=== PATIENT | female | born 1975 | race Two or more races ===

== ENCOUNTER 2018-01-29 11:31 | Emergency (ER) | payer BC ==
[2018-01-29 11:47] LABS: URINE HCG POC HCG NEGATIVE (Negative)
[2018-01-29 12:06] LABS: ADD MAN DIFF? NO
[2018-01-29 12:09] LABS: BASO # 0.1 x10^3/uL (0.0-0.2); BASO % 1 % (0-3); EOS # 0.1 x10^3/uL (0.0-0.7); EOS % 1 % (0-3); HEMATOCRIT 39.4 % (36.0-47.0); HEMOGLOBIN 13.7 g/dL (12.0-15.5); LYMPH # 2.8 x10^3/uL (1.0-4.8); LYMPH % 23 % (24-48); MEAN CORPUSCULAR HEMOGLOBIN 30 pg (25-35); MEAN CORPUSCULAR HGB CONC 35 g/dL (31-37); MEAN CORPUSCULAR VOLUME 87 fL (79-100); MONO # 0.7 x10^3/uL (0.0-1.1); MONO % 5 % (0-9); NEUT # 8.7 x10^3uL (1.8-7.7); NEUT % 70 % (31-73); PLATELET COUNT 265 x10^3/uL (140-400); RED BLOOD COUNT 4.55 x10^6/uL (3.50-5.40); WHITE BLOOD COUNT 12.4 x10^3/uL (4.0-11.0)
[2018-01-29 12:21] LABS: ANION GAP 6 (6-14); BLOOD UREA NITROGEN 13 mg/dL (7-20); BUN/CREATININE RATIO 16 (6-20); CALCIUM 9.1 mg/dL (8.5-10.1); CARBON DIOXIDE 30 mmol/L (21-32); CHLORIDE 101 mmol/L (98-107); CREATININE 0.8 mg/dL (0.6-1.0); GFR 78.7; GLUCOSE 110 mg/dL (70-99); POTASSIUM 3.3 mmol/L (3.5-5.1); SODIUM 137 mmol/L (136-145)
[2018-01-29 12:27] LABS: TROPONINI < 0.017 ng/mL (0.000-0.055)
[2018-01-29 12:27] LABS: ALBUMIN 3.6 g/dL (3.4-5.0); ALBUMIN/GLOBULIN RATIO 0.9 (1.0-1.7); ALK PHOS 105 U/L (46-116); ALT (SGPT) 25 U/L (14-59); AST (SGOT) 21 U/L (15-37); MAGNESIUM 1.7 mg/dL (1.8-2.4); TOTAL BILIRUBIN 0.6 mg/dL (0.2-1.0); TOTAL PROTEIN 7.4 g/dL (6.4-8.2)
[2018-01-29] MEDS: ASPIRIN 325 MG TABLET PO (12:34)
[2018-01-29] MEDS: POTASSIUM CHLORIDE 20 MEQ TABLET.ER. PO (13:05)
[2018-01-29] MEDS: MAGNESIUM SULFATE 1GM 100 ML IV (13:05)
== END 2018-01-29 14:25 | disposition home or self-care (01) ==
LOC: ER 11:31 → 5 SOUTH 13:53
DX: R51 Headache (principal); R07.89 Other chest pain; I10 Essential (primary) hypertension; F13.10 Sedative, hypnotic or anxiolytic abuse, uncomplicated
CPT/HCPCS: 36415; 71045; 80053; 81025; 83735; 84484; 85025; 93005; 96365; 99285-25; J3475

== ENCOUNTER 2019-04-30 17:00 | Emergency (ER) | payer BC ==
[~2019-04-30] VITALS: Ht 154.9 cm; Wt 121.1 kg
--- NOTE | 2019-04-30 17:59 | PHYS DOC ---
Past Medical History Past Medical History: Hypertension, Hyperthyroid Past Surgical History: Other Additional Past Surgical Histo: BURNING OR UTERUS FOR HPV Alcohol Use: None Drug Use: Benzodiazepine Adult General Chief Complaint Chief Complaint: Insomnia HPI HPI Patient is a 43 year old female with history of hypertension, hypothyroidism, who presents to the ED today complaining of stress and insomnia. Patient states since February she's had increased stress because her daughter gave to a premature baby and she has been helping the daughter take care of the baby. She states she's not been sleeping well since February. Patient denies any suicidal homicidal ideations. She states she's been taking txhz-[id number] sleeping tea with some relief for her insomnia. She was asking if we can put her on any sleeping pills and medicine for stress. Review of Systems Review of Systems Constitutional: Denies fever or chills [] Eyes: Denies change in visual acuity, redness, or eye pain [] HENT: Denies nasal congestion or sore throat [] Respiratory: Denies cough or shortness of breath [] Cardiovascular: No additional information not addressed in HPI [] GI: Denies abdominal pain, nausea, vomiting, bloody stools or diarrhea [] : Denies dysuria or hematuria [] Musculoskeletal: Denies back pain or joint pain [] Integument: Denies rash or skin lesions [] Neurologic: Denies headache, focal weakness or sensory changes [] Psych: Reports insomnia and stress All other systems were reviewed and found to be within normal limits, except as documented in this note. Current Medications Current Medications Current Medications Medications (Trade) Dose Ordered Sig/Yanick Start Time Stop Time Status Last Admin Dose Admin Alprazolam (Xanax) 0.5 mg 1X ONCE 04/30/19 18:00 04/30/19 18:01 Clonidine HCl (Catapres) 0.1 mg 1X ONCE 04/30/19 18:00 04/30/19 18:01 Allergies Allergies Allergies Coded Allergies Type Severity Reaction Last Updated Verified No Known Drug Allergies 08/26/15 No Physical Exam Physical Exam Constitutional: Well developed, well nourished, no acute distress, non-toxic appearance. [] HENT: Normocephalic, atraumatic, bilateral external ears normal, oropharynx moist, no oral exudates, nose normal. [] Eyes: PERRLA, EOMI, conjunctiva normal, no discharge. [] Neck: Normal range of motion, no tenderness, supple, no stridor. [] Cardiovascular:Heart rate regular rhythm, no murmur [] Lungs & Thorax: Bilateral breath sounds clear to auscultation [] Abdomen: Bowel sounds normal, soft, no tenderness, no masses, no pulsatile masses. [] Skin: Warm, dry, no erythema, no rash. [] Back: No tenderness, no CVA tenderness. [] Extremities: No tenderness, no cyanosis, no clubbing, ROM intact, no edema. [] Neurologic: Alert and oriented X 3, normal motor function, normal sensory function, no focal deficits noted. [] Psychologic: Appears tired. EKG EKG [] Radiology/Procedures Radiology/Procedures [] Course & Med Decision Making Course & Med Decision Making Pertinent Labs and Imaging studies reviewed. (See chart for details) This is a 43-year-old female patient who presents to the ED today complaining of insomnia and stress due to her daughter giving to a premature baby and having to help with the daughter. She has no suicidal or homicidal ideations. She is requesting to be put on sleeping pills and medications for stress. I spoke to patient at length. We discussed about usxp-zht-anbrfzi remedies for sleeping including melatonin/Benadryl. We also discussed stress management techniques. She has a primary care doctor, I requested she follows up in the next 1 week. I also recommended [facility]. Dragon Disclaimer Dragon Disclaimer This electronic medical record was generated, in whole or in part, using a voice recognition dictation system. Departure Departure Impression: Primary Impression: Insomnia Additional Impression: Stress Disposition: 01 HOME, SELF-CARE Condition: STABLE Referrals: REY CHENEY MD (PCP) Follow-up with your doctor in the course of this week as well as [facility] Patient Instructions: Insomnia-Brief, Stress Additional Instructions: You were evaluated in the emergency room for insomnia and stress. Please follow- up with your primary care doctor in the course of this week or next week. Consider using pehn-ayb-sgenuzs remedies that we discussed that help with this patient sleep including Benadryl Problem Qualifiers Primary Impression: Insomnia Insomnia type: other insomnia Qualified Codes: G47.09 - Other insomnia JUANMICAH GONZALEZ SHELL MACHINE OPERATOR Apr 30, 2019 17:59
[2019-04-30 18:00] VITALS: BP 194/93
[2019-04-30] MEDS ORDERED: cloNIDine HCL 0.1 MG TABLET PO ONE (18:00)
[2019-04-30] MEDS ORDERED: ALPRAZolam 0.5 MG TABLET PO ONE (18:00)
== END 2019-04-30 18:21 | disposition home or self-care (01) ==
LOC: ER 17:00
DX: F51.02 Adjustment insomnia (principal); I10 Essential (primary) hypertension; E05.90 Thyrotoxicosis, unspecified without thyrotoxic crisis or storm
CPT/HCPCS: 99283

== ENCOUNTER 2022-01-09 17:00 | Emergency (ER) | payer BC, OTHER ==
[~2022-01-09] VITALS: Ht 154.9 cm; Wt 147.8 kg
[2022-01-09 17:57] LABS: BASO % 1 % (0-3); EOS # 0.1 x10^3/uL (0.0-0.7); EOS % 1 % (0-3); HEMATOCRIT 40.7 % (36.0-47.0); HEMOGLOBIN 13.4 g/dL (12.0-15.5); LYMPH # 1.4 x10^3/uL (1.0-4.8); LYMPH % 14 % (24-48); MEAN CORPUSCULAR HEMOGLOBIN 28 pg (25-35); MEAN CORPUSCULAR HGB CONC 33 g/dL (31-37); MEAN CORPUSCULAR VOLUME 86 fL (79-100); MONO # 0.2 x10^3/uL (0.0-1.1); MONO % 2 % (0-9); NEUT # 8.1 x10^3/uL (1.8-7.7); NEUT % 83 % (31-73); PLATELET COUNT 303 x10^3/uL (140-400); RED BLOOD COUNT 4.73 x10^6/uL (3.50-5.40); RED CELL DISTRIBUTION WIDTH 15.3 % (11.5-14.5); WHITE BLOOD COUNT 9.8 x10^3/uL (4.0-11.0)
[2022-01-09] MEDS ORDERED: ACETAMINOPHEN 500 MG TABLET PO ONE (18:00)
[2022-01-09] MEDS ORDERED: IV NORMAL SALINE 1000ML BAG 1,000 ML IV ONE (18:00)
[2022-01-09 18:11] LABS: CALCIUM 9.3 mg/dL (8.5-10.1); CREATININE 0.9 mg/dL (0.6-1.0); GFR 67.4
[2022-01-09 18:17] LABS: ALBUMIN 3.8 g/dL (3.4-5.0); ALBUMIN/GLOBULIN RATIO 0.9 (1.0-1.7); TOTAL BILIRUBIN 0.7 mg/dL (0.2-1.0); TOTAL PROTEIN 8.2 g/dL (6.4-8.2)
--- NOTE | 2022-01-09 18:27 | PHYS DOC ---
Past Medical History Past Medical History: Hypertension, Hyperthyroid Past Surgical History: Other Additional Past Surgical Histo: BURNING OR UTERUS FOR HPV Smoking Status: Never Smoker Alcohol Use: None Drug Use: Benzodiazepine General Adult EDM: Chief Complaint: HEADACHE HPI: HPI: Is a 46-year-old female that presents today with headache and shaking. Patient states she states that this afternoon she started developing a headache, and shaking all over, she said she took some Tylenol this morning for headache and is progressively gotten worse. Patient also states with the headache she has some blurred vision double vision, patient did not complain of shortness of br eath or chest pain with me at the time of the HPI, patient denies cough, sore throat or nasal congestion. Review of Systems: Review of Systems: Constitutional: chills. [] Eyes: Denies change in visual acuity. [] HENT: Denies nasal congestion or sore throat. [] Respiratory: Denies cough or shortness of breath. [] Cardiovascular: Denies chest pain or edema. [] GI: Denies abdominal pain, nausea, vomiting, bloody stools or diarrhea. [] : dysuria and urinary frequency. [] Musculoskeletal: Body aches denies back pain or joint pain. [] Integument: Denies rash. [] Neurologic: headache and dizziness, denies focal weakness or sensory changes. [] Endocrine: Denies polyuria or polydipsia. [] Lymphatic: Denies swollen glands. [] Psychiatric: Denies depression or anxiety. [] Heart Score: C/O Chest Pain: No Risk Factors: Risk Factors: DM, Current or recent (<one month) smoker, HTN, HLP, family history of CAD, obesity. Risk Scores: Score 0 - 3: 2.5% MACE over next 6 weeks - Discharge Home Score 4 - 6: 20.3% MACE over next 6 weeks - Admit for Clinical Observation Score 7 - 10: 72.7% MACE over next 6 weeks - Early Invasive Strategies Current Medications: Current Medications Medications (Trade) Dose Ordered Sig/Yanick Start Time Stop Time Status Last Admin Dose Admin Acetaminophen (Tylenol) 1,000 mg 1X ONCE 01/09/22 18:00 01/09/22 18:01 DC 01/09/22 17:59 1,000 MG Sodium Chloride 1,000 ml @ 999 mls/hr 1X ONCE 01/09/22 18:00 01/09/22 19:00 01/09/22 17:53 999 MLS/HR Allergies: Allergies: Allergies Coded Allergies Type Severity Reaction Last Updated Verified No Known Drug Allergies 08/26/15 No Physical Exam: PE: Constitutional: Well developed, well nourished, no acute distress, non-toxic appearance. [] HENT: Normocephalic, atraumatic, bilateral external ears normal, oropharynx moist, no oral exudates, nose normal. [] Eyes: PERRLA, EOMI, conjunctiva normal, no discharge. [] Neck: Normal range of motion, no tenderness, supple, no stridor. [] Cardiovascular:Heart rate regular rhythm, no murmur [] Lungs & Thorax: Bilateral breath sounds clear to auscultation [] Abdomen: Bowel sounds normal, soft, no tenderness, no masses, no pulsatile masses. [] Skin: Warm, hot, no erythema, no rash. [] Back: No tenderness, no CVA tenderness. [] Extremities: No tenderness, no cyanosis, no clubbing, ROM intact, no edema. [] Neurologic: Alert and oriented X 3, normal motor function, normal sensory function, no focal deficits noted. [] Psychologic: Affect normal, judgement normal, mood normal. [] Current Patient Data: Labs: Laboratory Tests Test 01/09/22 17:30 White Blood Count 9.8 x10^3/uL (4.0-11.0) Red Blood Count 4.73 x10^6/uL (3.50-5.40) Hemoglobin 13.4 g/dL (12.0-15.5) Hematocrit 40.7 % (36.0-47.0) Mean Corpuscular Volume 86 fL (79-100) Mean Corpuscular Hemoglobin 28 pg (25-35) Mean Corpuscular Hemoglobin Concent 33 g/dL (31-37) Red Cell Distribution Width 15.3 % (11.5-14.5) H Platelet Count 303 x10^3/uL (140-400) Neutrophils (%) (Auto) 83 % (31-73) H Lymphocytes (%) (Auto) 14 % (24-48) L Monocytes (%) (Auto) 2 % (0-9) Eosinophils (%) (Auto) 1 % (0-3) Basophils (%) (Auto) 1 % (0-3) Neutrophils # (Auto) 8.1 x10^3/uL (1.8-7.7) H Lymphocytes # (Auto) 1.4 x10^3/uL (1.0-4.8) Monocytes # (Auto) 0.2 x10^3/uL (0.0-1.1) Eosinophils # (Auto) 0.1 x10^3/uL (0.0-0.7) Basophils # (Auto) 0.0 x10^3/uL (0.0-0.2) Sodium Level 136 mmol/L (136-145) Potassium Level 4.0 mmol/L (3.5-5.1) Chloride Level 99 mmol/L (98-107) Carbon Dioxide Level 29 mmol/L (21-32) Anion Gap 8 (6-14) Blood Urea Nitrogen 14 mg/dL (7-20) Creatinine 0.9 mg/dL (0.6-1.0) Estimated GFR (Cockcroft-Gault) 67.4 BUN/Creatinine Ratio 16 (6-20) Glucose Level 95 mg/dL (70-99) Calcium Level 9.3 mg/dL (8.5-10.1) Total Bilirubin Pending Aspartate Amino Transferase (AST) Pending Alanine Aminotransferase (ALT) Pending Alkaline Phosphatase Pending Total Protein Pending Albumin Pending Albumin/Globulin Ratio Pending Laboratory Tests 01/09/22 17:30 Laboratory Tests 01/09/22 17:30 Vital Signs: Vital Signs Date Time Temp Pulse Resp B/P (MAP) Pulse Ox O2 Delivery O2 Flow Rate FiO2 01/09/22 18:51 100.0 118 32 98 100.0 01/09/22 18:07 124 26 98 01/09/22 17:04 103.1 140 32 186/86 (119) 95 Room Air 103.1 Vital Signs Date Time Temp Pulse Resp B/P (MAP) Pulse Ox O2 Delivery O2 Flow Rate FiO2 01/09/22 18:07 124 26 98 01/09/22 17:04 103.1 186/86 (119) Room Air 103.1 EKG: EKG: EKG done at [address] Ortiz at 1750 shows sinus rhythm no ectopy at a rate of 127 with a WY interval of 178 ms with a QTC of 421 ms no STEMI [] Radiology/Procedures: Radiology/Procedures: REASON: shortness of breath PROCEDURE: CHEST AP ONLY XR CHEST 1V INDICATION: shortness of breath . COMPARISON STUDY: None. FINDINGS: Lungs: Normal lung volume. No pulmonary mass or consolidation. The tracheobronchial tree and hilar structures are normal. Pleura: No pleural effusion or pneumothorax. Heart and Mediastinum: Mild cardiomegaly. The great vessels of the thorax are normal. Bones and Soft Tissues: The bones and soft tissues are within normal limits. IMPRESSION: No acute cardiopulmonary process. Electronically signed by: Ab Rudd MD (01/09/2022 6:58 PM) [facility] REASON: headache and dizziness PROCEDURE: CT HEAD WO CONTRAST Exam: CT head INDICATION: Headache and dizziness TECHNIQUE: Sequential axial images through the head were obtained without the administration of IV contrast. Exposure: One or more of the following in the visualized dose reduction techniques were utilized for this examination: 1. Automated exposure control 2. Adjustment of the MA and/or KV according to patient size 3. Use of iterative of reconstructive technique Comparisons: None FINDINGS: No focal parenchymal lesion or hemorrhage is identified. There is no midline shift or sulcal effacement. No acute vascular territory infarction is identified. Santamaria-white distinction is preserved. The ventricular system is within normal limits without compression hydrocephalus. The basal cisterns are well maintained. The visualized portions of the paranasal sinuses and mastoid air cells are well- pneumatized. No acute fractures. IMPRESSION: No acute intracranial abnormality. Electronically signed by: Rebeca Browne MD (01/09/2022 7:13 PM) [facility] [] Course & Med Decision Making: Course & Med Decision Making Pertinent Labs and Imaging studies reviewed. (See chart for details) 2109 reviewed radiological laboratory results with patient did inform her that she does have pyelonephritis and that we had given her an IV antibiotic and will send her home with oral antibiotic to take. Patient was given return instructions to come back to the emergency department for increased pain, fever not relieved by Tylenol or ibuprofen, inability to keep any antibiotics down due to nausea and vomiting or any other concerns you may have. Patient does see [facility] I instructed her to call them tomorrow for further follow-up next week for repeat urine. Patient verbalized understanding this and agreeable with plan of care. Any Disclaimer: Any Disclaimer: This electronic medical record was generated, in whole or in part, using a voice recognition dictation system. Departure Departure Impression: Primary Impression: Pyelonephritis Disposition: HOME / SELF CARE / HOMELESS Condition: STABLE Referrals: NO PCP (PCP) Patient Instructions: Pyelonephritis, Adult Additional Instructions: Cefdinir take 1 tablet twice daily for 10 full days Increase by mouth fluid avoiding caffeine and alcohol which can irritate the kidneys and bladder Tylenol and/or ibuprofen as needed for fever and pain Return to the emergency department for increased pain, fever not controlled with Tylenol and/or ibuprofen, nausea vomiting that prevents you to take your antibiotics, or decreased urinary output Follow-up with your primary care physician at the [facility] tomorrow by phone for further management and evaluation next week. Scripts Cefdinir (CEFDINIR) 300 Mg Capsule 1 CAP PO BID, #20 CAP Prov: SHAMAR MEDEIROS ALTERATIONS EXPERT 01/09/22 SHAMAR MEDEIROS ALTERATIONS EXPERT Jan 09, 2022 18:26
[2022-01-09 19:01] LABS: BACTERIA,URINE MODERATE /HPF (0-FEW); WBC,URINE TNTC /HPF (0-4)
--- NOTE | 2022-01-09 19:01 | RAD ---
XR CHEST 1V INDICATION: shortness of breath . COMPARISON STUDY: None. FINDINGS: Lungs: Normal lung volume. No pulmonary mass or consolidation. The tracheobronchial tree and hilar st ructures are normal. Pleura: No pleural effusion or pneumothorax. Heart and Mediastinum: Mild cardiomegaly. The great vessels of the thorax are normal. Bones and Soft Tissues: The bones and soft tissues are within normal limits. IMPRESSION: No acute cardiopulmonary process. Electronically signed by: Ab Rudd MD (01/09/2022 6:58 PM) [facility]
[2022-01-09 19:04] LABS: INFLUENZA A PATIENT NEGATIVE (NEGATIVE); INFLUENZA B PATIENT NEGATIVE (NEGATIVE)
--- NOTE | 2022-01-09 19:16 | RAD ---
Exam: CT head INDICATION: Headache and dizziness TECHNIQUE: Sequential axial images through the head were obtained without the administration of IV co ntrast. Exposure: One or more of the following in the visualized dose reduction techniques were utilized for this examination: 1. Automated exposure control 2. Adjustment of the MA and/or KV according to patient size 3. Use of iterative of reconstructive technique Comparisons: None FINDINGS: No focal parenchymal lesion or hemorrhage is identified. There is no midline shift or sulcal effaceme nt. No acute vascular territory infarction is identified. Santamaria-white distinction is preserved. The ventricular system is within normal limits without compression hydrocephalus. The basal cisterns are well maintained. The visualized portions of the paranasal sinuses and mastoid air cells are well-pneumatized. No acute fractures. IMPRESSION: No acute intracranial abnormality. Electronically signed by: Rebeca Browne MD (01/09/2022 7:13 PM) MIC[facility]EL
[2022-01-09] MEDS ORDERED: cefTRIAXone IV Push 1 GM VIAL. IVP ONE (19:30)
--- NOTE | 2022-01-09 19:31 | EKG ---
[facility] [address] [place] [address] Test Date: 2022-01-09 Test Time: 17:45:35 Pat Name: ADELAIDA REDDY Department: Room: Gender: F Historic Preservationist: : 1975 Requested By: SHAMAR MEDEIROS Order Number: [id number] Reading MD: Measurements Intervals [place] Rate: 127 P: 156 MA: 178 QRS: 5 QRSD: 96 T: 43 QT: 286 QTc: 421 Interpretive Statements SUPRAVENTRICULAR RHYTHM T ABNORMALITY IN HIGH LATERAL LEADS ABNORMAL ECG RI6.02 No previous ECG available for comparison
[2022-01-09] MEDS ORDERED: IOHEXOL 300 MG/ML 100ML VIAL. IV ONE (20:00)
[2022-01-09] MEDS ORDERED: CONTRAST GIVEN. MC PRN (20:15)
[2022-01-09 20:25] LABS: U PREG PATIENT NEGATIVE (NEG)
--- NOTE | 2022-01-09 21:07 | RAD ---
EXAM: CT Abdomen and Pelvis with IV contrast CLINICAL HISTORY: r/o pyelonephritis COMPARISON: none TECHNIQUE: Helical CT of the abdomen and pelvis was performed following the administration of intrave nous contrast. Axial, coronal and sagittal reformatted images were generated. PQRS compliance statement - One or more of the following individualized dose reduction techniques wer e utilized for this study: 1. Automated exposure control 2. Adjustment of the mA and/or kV according to patient size 3. Use of iterative reconstruction technique FINDINGS: Lower Chest: Lung bases are clear. Abdomen and Pelvis: Hepatic hypoattenuation, fatty liver. Hepatomegaly. Spleen, adrenal glands and pancreas are unremarka ble. Symmetric nephrograms. No focal renal lesion. No hydronephrosis. No hydroureter. There is mild i nfiltration about the right ureter and right kidney. Mild edematous appearance of the right kidney. B ladder is unremarkable. Appendix is normal. Moderate to large volume colonic stool content is seen. No small or large bowel d ilatation. Trace fat-containing periumbilical hernia is seen. Low-attenuation within the cervix/lower uterine s egment, likely nabothian cysts. Aorta is normal in caliber. No abdominal or pelvic lymphadenopathy. N o abdominal or pelvic ascites. No aggressive osseous lesion is seen. Degenerative changes of the spine are seen IMPRESSION: 1. Infiltration about the right kidney with mild enlargement/edematous appearance of the right kidne y may be seen with pyelonephritis and can be correlated with urinalysis and lab values. 2. Hepatomegaly. Hepatic hypoattenuation, fatty liver. Electronically signed by: Kevin Choudhary MD (01/09/2022 9:05 PM) [facility]
[2022-01-09] MEDS ORDERED: CEFD300C PO (21:18)
[2022-01-09 21:32] VITALS: BP 147/67
--- NOTE | 2022-01-10 11:07 | VNOTE ---
CALL BACK NOTE CALL BACK Microbiology 01/09/22 Blood Culture - Final, Complete 01/10/22 1103 Blood cultures positive in 01/09 bottles for gram negative rods. Patient chart reviewed. She was diagnosed with pyelonephritis and dc to home with rx for cefdinir. On presentation, patient was febrile, tachycardic, tachypnic. On updated vitals, tachycardic and tachypnic, temp 100.[address] F[address]. Baker, attending in ED, who concurs patient should be contacted to consider return for IV antibiotic administration. Attempted to call patient phone number on file as well as 's number. Both did not ring upon dialing. Notified nursing pipe manufacture supervisor that attempt to contact was made. DONTRELL YEH Jan 10, 2022 11:07
[2022-01-10] MEDS ORDERED: CLIN30GE3 TP (21:24)
[2022-01-10] MEDS ORDERED: HYDR25TA10 PO (21:24)
[2022-01-10] MEDS ORDERED: AMLO-186 PO (21:24)
[2022-01-10] MEDS ORDERED: MULT-245 PO (21:25)
== END 2022-01-09 21:49 | disposition home or self-care (01) ==
LOC: ER 17:00
DX: N12 Tubulo-interstitial nephritis, not specified as acute or chronic (principal); Z20.822 Contact with and (suspected) exposure to COVID-19; R51.9 Headache, unspecified; R06.02 Shortness of breath; I10 Essential (primary) hypertension
CPT/HCPCS: 36415; 70450; 71045; 74177; 80053; 81001; 81025; 85025; 87015; 87040; 87077; 87086; 87186; 87428; 93005; 96361; 96374; 99285; J0696; J7030; Q9967

== ENCOUNTER 2022-01-10 15:32 | Inpatient (IN) | payer OTHER ==
[~2022-01-10] VITALS: Ht 154.9 cm; Wt 147.4 kg
[~2022-01-10 15:32] MED LIST: CEFD300C PO
[2022-01-10] MEDS ORDERED: ACETAMINOPHEN 500 MG TABLET PO ONE (16:45)
[2022-01-10] MEDS ORDERED: VANCOMYCIN PER PHARMACY MC ONE (16:45)
[2022-01-10] MEDS ORDERED: ONDANSETRON PF 4 MG/2 ML VIAL. IVP ONE (16:45)
[2022-01-10] MEDS ORDERED: MORPHINE SULFATE 4 MG/ML INJ. IV/SQ PRN (16:45)
[2022-01-10] MEDS ORDERED: PIPERACILLIN/TAZOBACTAM 4.5 GM in IV DEXTROSE 5% 100ML 100 ML IV ONE (17:00)
[2022-01-10] MEDS: IV NORMAL SALINE 1000ML BAG 1,000 ML IV SCH ×2 (17:09→18:53)
[2022-01-10 17:24] LABS: CREATININE 0.9 mg/dL (0.6-1.0); GFR 67.4; POTASSIUM 3.6 mmol/L (3.5-5.1)
[2022-01-10 17:30] LABS: ALBUMIN 3.3 g/dL (3.4-5.0); ALBUMIN/GLOBULIN RATIO 0.8 (1.0-1.7); TOTAL BILIRUBIN 0.5 mg/dL (0.2-1.0); TOTAL PROTEIN 7.7 g/dL (6.4-8.2)
[2022-01-10] MEDS ORDERED: VANCOMYCIN 2 GM in IV NORMAL SALINE 500ML BAG 500 ML IV ONE (17:30)
[2022-01-10 17:38] LABS: BACTERIA,URINE FEW /HPF (0-FEW); RBC,URINE 20-40 /HPF (0-2)
--- NOTE | 2022-01-10 19:12 | PHYS DOC ---
Past Medical History Past Medical History: Hypertension, Hyperthyroid Past Surgical History: Other Additional Past Surgical Histo: BURNING OR UTERUS FOR HPV Smoking Status: Never Smoker Alcohol Use: None Drug Use: Benzodiazepine General Adult EDM: Chief Complaint: OTHER COMPLAINTS HPI: HPI: Patient is a 46 year old female who presents to the ED today to be evaluated for pyelonephritis, she was diagnosed yesterday and sent home on oral antibiotics. She was called by one of the midlevel's to be admitted for sepsis/pyelonephritis. Patient states she continues to have shivering, fever and nausea. Review of Systems: Review of Systems: Constitutional: reports shivering, shaking Eyes: Denies change in visual acuity. [] HENT: Denies nasal congestion or sore throat. [] Respiratory: Denies cough or shortness of breath. [] Cardiovascular: Denies chest pain or edema. [] GI: Reports nausea. Denies abdominal pain, vomiting, bloody stools or diarrhea. [] : Diagnosed with pyelonephritis yesterday Musculoskeletal: Denies back pain or joint pain. [] Integument: Denies rash. [] Neurologic: Denies headache, focal weakness or sensory changes. [] Psychiatric: Denies depression or anxiety. [] Heart Score: C/O Chest Pain: N/A Risk Factors: Risk Factors: DM, Current or recent (<one month) smoker, HTN, HLP, family history of CAD, obesity. Risk Scores: Score 0 - 3: 2.5% MACE over next 6 weeks - Discharge Home Score 4 - 6: 20.3% MACE over next 6 weeks - Admit for Clinical Observation Score 7 - 10: 72.7% MACE over next 6 weeks - Early Invasive Strategies Current Medications: Current Medications Medications (Trade) Dose Ordered Sig/[facility] Start Time Stop Time Status Last Admin Dose Admin Acetaminophen (Tylenol) 1,000 mg 1X ONCE 01/10/22 16:45 01/10/22 16:46 DC 01/10/22 17:10 1,000 MG Morphine Sulfate (Morphine Sulfate) 4 mg PRN Q15MIN PRN 01/10/22 16:45 01/11/22 16:44 Ondansetron HCl (Zofran) 4 mg 1X ONCE 01/10/22 16:45 01/10/22 16:46 DC 01/10/22 17:11 4 MG Piperacillin Sod/ Tazobactam Sod (Zosyn Per Pharmacy) 1 each PRN DAILY PRN 01/10/22 19:15 UNV Piperacillin Sod/ Tazobactam Sod 4.5 gm/Dextrose 100 ml @ 200 mls/hr 1X ONCE 01/10/22 17:00 01/10/22 17:29 DC 01/10/22 17:14 200 MLS/HR Sodium Chloride 1,000 ml @ 1,440 mls/hr Q42M 01/10/22 16:45 01/10/22 17:45 DC 01/10/22 18:53 1,440 MLS/HR Vancomycin HCl (Vanco Per Pharmacy) 1 each 1X ONCE 01/10/22 16:45 01/10/22 16:46 UNV Vancomycin HCl 2 gm/Sodium Chloride 500 ml @ 250 mls/hr 1X ONCE 01/10/22 17:30 01/10/22 19:29 01/10/22 18:52 250 MLS/HR Allergies: Allergies: Allergies Coded Allergies Type Severity Reaction Last Updated Verified No Known Drug Allergies 01/10/22 No Physical Exam: PE: Constitutional: Well developed, well nourished, no acute distress, non-toxic appearance. [] HENT: Normocephalic, atraumatic, bilateral external ears normal, oropharynx moist, no oral exudates, nose normal. [] Eyes: PERRLA, EOMI, conjunctiva normal, no discharge. [] Neck: Normal range of motion, no tenderness, supple, no stridor. [] Cardiovascular:Heart rate regular rhythm, no murmur [] Lungs & Thorax: Bilateral breath sounds clear to auscultation [] Abdomen: Bowel sounds normal, soft, no tenderness, no masses, no pulsatile masses. [] Skin: Warm, dry, no erythema, no rash. [] Back: No tenderness, no CVA tenderness. [] Extremities: No tenderness, no cyanosis, no clubbing, ROM intact, no edema. [] Neurologic: Alert and oriented X 3, normal motor function, normal sensory function, no focal deficits noted. [] Psychologic: Affect normal, judgement normal, mood normal. [] Current Patient Data: Labs: Laboratory Tests Test 01/10/22 16:55 01/10/22 17:05 Urine Collection Type Unknown Urine Color (Auto) Light yellow Urine Turbidity Hazy Urine pH (Auto) 7.5 (<5.0-8.0) Urine Specific [place] 1.015 (1.000-1.030) Urine Protein (Auto) Negative mg/dL (Negative) Urine Glucose (Auto)(UA) Negative mg/dL (Negative) Urine Ketones (Auto) Negative mg/dL (Negative) Urine Blood (Auto) Large (Negative) Urine Nitrite Negative (Negative) Urine Bilirubin (Auto) Negative (Negative) Urine Urobilinogen (Auto) Normal mg/dL (Normal) Urine Leukocyte Esterase (Auto) Moderate (Negative) Urine RBC 20-40 /HPF (0-2) Urine WBC 11-20 /HPF (0-4) Urine Squamous Epithelial Cells Mod /LPF Urine Bacteria Few /HPF (0-FEW) Urine Mucus Slight /LPF Sodium Level 139 mmol/L (136-145) Potassium Level 3.6 mmol/L (3.5-5.1) Chloride Level 99 mmol/L (98-107) Carbon Dioxide Level 31 mmol/L (21-32) Anion Gap 9 (6-14) Blood Urea Nitrogen 14 mg/dL (7-20) Creatinine 0.9 mg/dL (0.6-1.0) Estimated GFR (Cockcroft-Gault) 67.4 BUN/Creatinine Ratio 16 (6-20) Glucose Level 109 mg/dL (70-99) H Lactic Acid Level 1.2 mmol/L (0.4-2.0) Calcium Level 9.0 mg/dL (8.5-10.1) Total Bilirubin 0.5 mg/dL (0.2-1.0) Aspartate Amino Transferase (AST) 21 U/L (15-37) Alanine Aminotransferase (ALT) 26 U/L (14-59) Alkaline Phosphatase 81 U/L (46-116) Total Protein 7.7 g/dL (6.4-8.2) Albumin 3.3 g/dL (3.4-5.0) L Albumin/Globulin Ratio 0.8 (1.0-1.7) L Procalcitonin 8.21 ng/mL (0.00-0.10) H Laboratory Tests 01/10/22 17:05 Vital Signs: Vital Signs Date Time Temp Pulse Resp B/P (MAP) Pulse Ox O2 Delivery O2 Flow Rate FiO2 01/10/22 16:10 98.7 104 14 153/74 (100) 97 98.7 EKG: EKG: [] Radiology/Procedures: Radiology/Procedures: [] Course & Med Decision Making: Course & Med Decision Making Pertinent Labs and Imaging studies reviewed. (See chart for details) This a 46-year-old female patient presented to the ED today to be evaluated for pyelonephritis/sepsis she was diagnosed yesterday. She was called by one of the midlevel's and asked to return to the ED for admission. Patient states she is still shivering, has nausea. Vitals on arrival to the ED temperature 98.7, heart rate 104, respiration 14 on room air, blood pressure 153/74. CBC still pending, sed rate and CRP pending, lactic 1.2, procalcitonin 8.12. UA continues to show infection. Chemistry no acute findings. Given Zosyn and vancomycin, IV fluids continued Spoke with Dr. Bradford who accepted patient for admission Dragon Disclaimer: Any Disclaimer: This electronic medical record was generated, in whole or in part, using a voice recognition dictation system. Date and Time of Reassessment Date: Jan 10, 2022 Time: 17:30 Fluid Challenge Is the fluid challenge complet: No IBW Target Volume Used: No BMI > 30: No Vital Signs Vital Signs: Vital Signs Date Time Temp Pulse Resp B/P (MAP) Pulse Ox O2 Delivery O2 Flow Rate FiO2 01/10/22 16:10 98.7 104 14 153/74 (100) 97 98.7 Temperature Source: Oral Respirations Respiratory Effort: Normal Respiratory Pattern: Normal Cardiovascular Pulse Rhythm: Regular Heart: Nml rate, reg. rhythm Lung Sounds Breath Sounds: Clear Capillary Refil Capillary Refill: Rt Hand > 3 seconds Peripheral Pulse Pulse Location: Monitor Pulse Strength: Normal (2+) Pulse Assessment Method: NIBP Integumentary Skin: Warm Skin Moisture: Moist Skin Turgor: Normal Skin Color: warm Fingernail Color: WNL Departure Departure Impression: Primary Impression: Acute pyelonephritis Additional Impression: Sepsis Qualified Codes: A41.9 - Sepsis, unspecified organism Disposition: ADMITTED INPATIENT Condition: STABLE Referrals: NO PCP (PCP) MICAH BOLANOS APRN Jan 10, 2022 19:12
[2022-01-10] MEDS ORDERED: ONDANSETRON PF 4 MG/2 ML VIAL. IVP PRN (19:15)
[2022-01-10] MEDS ORDERED: ELECTROLYTE (NON-ICU) PROTOCOL. MC PRN (19:15)
[2022-01-10] MEDS ORDERED: MORPHINE SULFATE 2 MG/ML INJ. IV PRN ×2 (19:15)
[2022-01-10] MEDS ORDERED: oxyCODONE/APAP 5/325 1 TAB TABLET PO PRN ×2 (19:15)
[2022-01-10] MEDS ORDERED: PIP/TAZO PER PHARMACY MC PRN (19:15)
[2022-01-10] MEDS ORDERED: CALCIUM CARBONATE 500 MG TAB.CHEW PO PRN (19:15)
[2022-01-10] MEDS ORDERED: ZOLPIDEM 5 MG TABLET. PO PRN (19:15)
--- NOTE | 2022-01-10 19:59 | RAD ---
XR CHEST 1V INDICATION: elevated procal, eval for infectious etiology COMPARISON STUDY: None. FINDINGS: Lungs: Normal lung volume. No pulmonary mass or consolidation. The tracheobronchial tree and hilar st ructures are normal. Pleura: No pleural effusion or pneumothorax. Heart and Mediastinum: The cardiomediastinal silhouette is normal. The great vessels of the thorax ar e normal. IMPRESSION: No acute cardiopulmonary process. Electronically signed by: Ab Rudd MD (01/10/2022 7:57 PM) [facility]
--- NOTE | 2022-01-10 20:42 | NUR ---
Pharmacy Vancomycin Dosing Note S:Consulted to monitor and dose vancomycin started 01/10/22. O:ADELAIDA REDDY is a 46 year old F with Pyelonephritis . Height: 5 feet, 1 inches Weight: 148.0 kg [place] Body Weight: 47.80 Adjusted Body Weight: 87.88 Dosing Weight: Other Antibiotics: Zosyn 3.375gm IVPB q6hrs LABS: Last BUN: 14 Last Creatinine: 0.9 Creatinine Clearance: 108 mL/min Last WBC: Last Procalcitonin: Tmax (past 24 hours): 98.7 Microbiology: I/O: Drug Levels: Last level: on at Last dose given 01/10/22 at 1852 Vancomycin Dosing: Loading Dose: 2000 mg x1 Dosing Weight: Target Trough: 15-20 A: Based on weight and est. CrCl: P: 1. Vancomycin 2000mg, followed by Vancomycin 1500 mg IV q8h. 2. Follow up Trough level on 01/11/22 at 1830. 3. Pharmacy will continue to monitor, follow and adjust therapy as needed. Wes Nance [place], 01/10/222041
[2022-01-10 20:44] LABS: BASO # 0.1 x10^3/uL (0.0-0.2); BASO % 1 % (0-3); EOS # 0.1 x10^3/uL (0.0-0.7); EOS % 1 % (0-3); HEMATOCRIT 35.2 % (36.0-47.0); HEMOGLOBIN 11.5 g/dL (12.0-15.5); LYMPH # 1.7 x10^3/uL (1.0-4.8); LYMPH % 17 % (24-48); MEAN CORPUSCULAR HEMOGLOBIN 28 pg (25-35); MEAN CORPUSCULAR HGB CONC 33 g/dL (31-37); MEAN CORPUSCULAR VOLUME 87 fL (79-100); MONO # 0.9 x10^3/uL (0.0-1.1); MONO % 9 % (0-9); NEUT # 7.3 x10^3/uL (1.8-7.7); NEUT % 72 % (31-73); PLATELET COUNT 238 x10^3/uL (140-400); RED BLOOD COUNT 4.07 x10^6/uL (3.50-5.40); RED CELL DISTRIBUTION WIDTH 15.8 % (11.5-14.5); WHITE BLOOD COUNT 10.1 x10^3/uL (4.0-11.0)
[2022-01-10] MEDS ORDERED: CLIN30GE3 TP (21:24)
[2022-01-10] MEDS ORDERED: HYDR25TA10 PO (21:24)
[2022-01-10] MEDS ORDERED: AMLO-186 PO (21:24)
[2022-01-10] MEDS ORDERED: MULT-245 PO (21:25)
[2022-01-10 21:30] VITALS: BP 113/59
[2022-01-10 23:00] VITALS: BP 120/59
[2022-01-10] MEDS: PIPERACILLIN/TAZOBACTAM 3.375 GM in IV NORMAL SALINE 50ML 50 ML IV SCH (23:02)
[2022-01-10] MEDS: SENNOSIDES/DOCUSATE 8.6/50MG TABLET. PO SCH (23:02)
[2022-01-10] MEDS: ACETAMINOPHEN 325 MG TABLET. PO PRN (23:02)
[2022-01-10] MEDS: HEPARIN for SUB-Q USE 5,000 UNIT/ML VIAL. SQ SCH (23:16)
--- NOTE | 2022-01-11 00:33 | PDOC1 ---
History and Physical Date of Service: DOS: Entry for January 10 Chief Complaint: Chief Complain: Concern for urinary infection History of Present Illness: HPI: Patient is a 46 year old female who presents to the ED today to be evaluated for pyelonephritis, she was diagnosed yesterday and sent home on oral antibiotics. She was called by one of the midlevel's to be admitted for sepsis/pyelonephritis. Patient states she continues to have shivering, fever and nausea. Past Medical/Surgical History: PMH/PSH: Past Medical History: Hypertension, Hyperthyroid Additional Past Surgical Histo: BURNING OR UTERUS FOR HPV Smoking Status: Never Smoker Alcohol Use: None Drug Use: Benzodiazepine Allergies: Allergies: Coded Allergies: No Known Drug Allergies (Unverified , 01/10/22) Family History: Family History: Hypertension Current Medications: Current Medications Current Medications Sodium Chloride 1,000 ml @ 1,440 mls/hr Q42M IV Last administered on 01/10/22at 18:53; Start 01/10/22 at 16:45; Stop 01/10/22 at 17:45; Status DC Piperacillin Sod/ Tazobactam Sod 4.5 gm/Dextrose 100 ml @ 200 mls/hr 1X ONCE IV Last administered on 01/10/22at 17:14; Start 01/10/22 at 17:00; Stop 01/10/22 at 17:29; Status DC Vancomycin HCl (Vanco Per Pharmacy) 1 each 1X ONCE MC Last administered on 01/10/22at 18:52; Start 01/10/22 at 16:45; Stop 01/10/22 at 20:30; Status DC Morphine Sulfate (Morphine Sulfate) 4 mg PRN Q15MIN PRN IV/SQ PAIN GREATER THAN 3/10; Start 01/10/22 at 16:45; Stop 01/11/22 at 16:44 Ondansetron HCl (Zofran) 4 mg 1X ONCE IVP Last administered on 01/10/22at 17:11; Start 01/10/22 at 16:45; Stop 01/10/22 at 16:46; Status DC Acetaminophen (Tylenol) 1,000 mg 1X ONCE PO Last administered on 01/10/22at 17:10; Start 01/10/22 at 16:45; Stop 01/10/22 at 16:46; Status DC Vancomycin HCl 2 gm/Sodium Chloride 500 ml @ 250 mls/hr 1X ONCE IV Last administered on 01/10/22at 18:52; Start 01/10/22 at 17:30; Stop 01/10/22 at 19:29; Status DC Piperacillin Sod/ Tazobactam Sod (Zosyn Per Pharmacy) 1 each PRN DAILY PRN MC SEE COMMENTS; Start 01/10/22 at 19:15 Ondansetron HCl (Zofran) 4 mg PRN Q6HRS PRN IVP NAUSEA/VOMITING; Start 01/10/22 at 19:15 Calcium Carbonate/ Glycine (Tums) 500 mg PRN Q3HRS PRN PO UPSET STOMACH; Start 01/10/22 at 19:15 Zolpidem Tartrate (Ambien) 5 mg PRN QHS PRN PO INSOMNIA, MAY REPEAT IN 1HR; Start 01/10/22 at 19:15 Info (Non-Icu Electrolyte Protocol) 1 ea PRN DAILY PRN MC SEE COMMENTS; Start 01/10/22 at 19:15 Morphine Sulfate (Morphine Sulfate) 1 mg PRN Q1HR PRN IV PAIN; Start 01/10/22 at 19:15 Morphine Sulfate (Morphine Sulfate) 2 mg PRN Q1HR PRN IV PAIN; Start 01/10/22 at 19:15 Oxycodone/ Acetaminophen (Percocet 5/325) 1 tab PRN Q4HRS PRN PO MILD PAIN, 1ST CHOICE; Start 01/10/22 at 19:15 Oxycodone/ Acetaminophen (Percocet 5/325) 2 tab PRN Q4HRS PRN PO MODERATE PAIN, SEVERE PAIN; Start 01/10/22 at 19:15 Acetaminophen (Tylenol) 650 mg PRN Q6HRS PRN PO Headaches, Temp > 101.5F Last administered on 01/10/22at 23:02; Start 01/10/22 at 19:15 Senna/Docusate Sodium (Senna Plus) 1 tab BID PO Last administered on 01/10/22at 23:02; Start 01/10/22 at 21:00 Heparin Sodium (Porcine) (Heparin Sodium) 5,000 unit Q8HRS SQ Last administered on 01/10/22at 23:16; Start 01/10/22 at 22:00 Vancomycin HCl 1.5 gm/Sodium Chloride 500 ml @ 250 mls/hr Q8H IV ; Start 01/11/22 at 03:00 Vancomycin HCl (Vancomycin Trough Level) 1 each 1X ONCE MC ; Start 01/11/22 at 18:30; Stop 01/11/22 at 18:31 Piperacillin Sod/ Tazobactam Sod 3.375 gm/Sodium Chloride 50 ml @ 100 mls/hr Q6 HRS IV Last administered on 01/10/22at 23:02; Start 01/11/22 at 00:00 Active Scripts Active Cefdinir 300 Mg Capsule 1 Cap PO BID Reported Multi Vitamin Daily (Multivitamin) 1 Each Tablet 1 Tab PO DAILY 30 Days Hydrochlorothiazide 25 Mg Tablet 1 Tab PO DAILY Clindamycin Phosphate 30 Gm Gel..gram. 1 Lily TP BID Amlodipine Besylate 5 Mg Tablet 1 Tab PO DAILY ROS: Review of Systems Review of System Unless noted in HPI 14 point review of systems is negative Physical Exam: Vital Signs: Vital Signs Date Time Temp Pulse Resp B/P (MAP) Pulse Ox O2 Delivery O2 Flow Rate FiO2 01/10/22 23:00 99.3 80 18 120/59 (79) 95 Room Air 99.3 Physcial Exam: GEN: No apparent distress. Alert and oriented HEENT: Normal cephalic, atraumatic, external auditory canals are patent EYES: Extraocular muscles are intact, pupil are equally round and reactive to light and accommodation MUSCULOSKELETAL: Well developed , well nourished, good range of motion ENDOCRINE: No thyromegaly was palpated LYMPHATICS: No cervical chain or axillary nodes were noted HEMATOPOIETIC: No bruising NECK: Supple, no JVD, no thyromegaly was noted LUNGS: Clear to auscultation in all lung [place] without rhonchi or wheezing HEART: RRR, S!, S2 present. Peripheral pulses intact, no obvious murmurs noted ABDOMEN: Soft, nontender. Positive bowel sounds, no organomegaly, normal bowel sounds EXTREMITIES: Without clubbing, cyanosis, or edema. Pedal pulses intact. Negative Homans sign NEUROLOGIC: Normal speech and tone. A&O x 3, moves all extremities, no obvious focal deficits PSYCHIATRIC: Normal affect, normal mood. Stable SKIN: No ulcerations or rashes, good skin turgor, no jaundice VASCULAR: Good capillary refill, neurovascular bundle appears to be intact Labs: Labs: Laboratory Tests Test 01/10/22 16:55 01/10/22 17:05 01/10/22 20:28 Urine Collection Type Unknown Urine Color (Auto) Light yellow Urine Turbidity Hazy Urine pH (Auto) 7.5 (<5.0-8.0) Urine Specific [place] 1.015 (1.000-1.030) Urine Protein (Auto) Negative mg/dL (Negative) Urine Glucose (Auto)(UA) Negative mg/dL (Negative) Urine Ketones (Auto) Negative mg/dL (Negative) Urine Blood (Auto) Large (Negative) Urine Nitrite Negative (Negative) Urine Bilirubin (Auto) Negative (Negative) Urine Urobilinogen (Auto) Normal mg/dL (Normal) Urine Leukocyte Esterase (Auto) Moderate (Negative) Urine RBC 20-40 /HPF (0-2) Urine WBC 11-20 /HPF (0-4) Urine Squamous Epithelial Cells Mod /LPF Urine Bacteria Few /HPF (0-FEW) Urine Mucus Slight /LPF Sodium Level 139 mmol/L (136-145) Potassium Level 3.6 mmol/L (3.5-5.1) Chloride Level 99 mmol/L (98-107) Carbon Dioxide Level 31 mmol/L (21-32) Anion Gap 9 (6-14) Blood Urea Nitrogen 14 mg/dL (7-20) Creatinine 0.9 mg/dL (0.6-1.0) Estimated GFR (Cockcroft-Gault) 67.4 BUN/Creatinine Ratio 16 (6-20) Glucose Level 109 mg/dL (70-99) Lactic Acid Level 1.2 mmol/L (0.4-2.0) Calcium Level 9.0 mg/dL (8.5-10.1) Total Bilirubin 0.5 mg/dL (0.2-1.0) Aspartate Amino Transf (AST/SGOT) 21 U/L (15-37) Alanine Aminotransferase (ALT/SGPT) 26 U/L (14-59) Alkaline Phosphatase 81 U/L (46-116) Total Protein 7.7 g/dL (6.4-8.2) Albumin 3.3 g/dL (3.4-5.0) Albumin/Globulin Ratio 0.8 (1.0-1.7) Procalcitonin 8.21 ng/mL (0.00-0.10) White Blood Count 10.1 x10^3/uL (4.0-11.0) Red Blood Count 4.07 x10^6/uL (3.50-5.40) Hemoglobin 11.5 g/dL (12.0-15.5) Hematocrit 35.2 % (36.0-47.0) Mean Corpuscular Volume 87 fL (79-100) Mean Corpuscular Hemoglobin 28 pg (25-35) Mean Corpuscular Hemoglobin Concent 33 g/dL (31-37) Red Cell Distribution Width 15.8 % (11.5-14.5) Platelet Count 238 x10^3/uL (140-400) Neutrophils (%) (Auto) 72 % (31-73) Lymphocytes (%) (Auto) 17 % (24-48) Monocytes (%) (Auto) 9 % (0-9) Eosinophils (%) (Auto) 1 % (0-3) Basophils (%) (Auto) 1 % (0-3) Neutrophils # (Auto) 7.3 x10^3/uL (1.8-7.7) Lymphocytes # (Auto) 1.7 x10^3/uL (1.0-4.8) Monocytes # (Auto) 0.9 x10^3/uL (0.0-1.1) Eosinophils # (Auto) 0.1 x10^3/uL (0.0-0.7) Basophils # (Auto) 0.1 x10^3/uL (0.0-0.2) Laboratory Tests Test 01/10/22 16:55 01/10/22 17:05 01/10/22 20:28 Urine Collection Type Unknown Urine Color (Auto) Light yellow Urine Turbidity Hazy Urine pH (Auto) 7.5 (<5.0-8.0) Urine Specific [place] 1.015 (1.000-1.030) Urine Protein (Auto) Negative mg/dL (Negative) Urine Glucose (Auto)(UA) Negative mg/dL (Negative) Urine Ketones (Auto) Negative mg/dL (Negative) Urine Blood (Auto) Large (Negative) Urine Nitrite Negative (Negative) Urine Bilirubin (Auto) Negative (Negative) Urine Urobilinogen (Auto) Normal mg/dL (Normal) Urine Leukocyte Esterase (Auto) Moderate (Negative) Urine RBC 20-40 /HPF (0-2) Urine WBC 11-20 /HPF (0-4) Urine Squamous Epithelial Cells Mod /LPF Urine Bacteria Few /HPF (0-FEW) Urine Mucus Slight /LPF Sodium Level 139 mmol/L (136-145) Potassium Level 3.6 mmol/L (3.5-5.1) Chloride Level 99 mmol/L (98-107) Carbon Dioxide Level 31 mmol/L (21-32) Anion Gap 9 (6-14) Blood Urea Nitrogen 14 mg/dL (7-20) Creatinine 0.9 mg/dL (0.6-1.0) Estimated GFR (Cockcroft-Gault) 67.4 BUN/Creatinine Ratio 16 (6-20) Glucose Level 109 mg/dL (70-99) Lactic Acid Level 1.2 mmol/L (0.4-2.0) Calcium Level 9.0 mg/dL (8.5-10.1) Total Bilirubin 0.5 mg/dL (0.2-1.0) Aspartate Amino Transf (AST/SGOT) 21 U/L (15-37) Alanine Aminotransferase (ALT/SGPT) 26 U/L (14-59) Alkaline Phosphatase 81 U/L (46-116) Total Protein 7.7 g/dL (6.4-8.2) Albumin 3.3 g/dL (3.4-5.0) Albumin/Globulin Ratio 0.8 (1.0-1.7) Procalcitonin 8.21 ng/mL (0.00-0.10) White Blood Count 10.1 x10^3/uL (4.0-11.0) Red Blood Count 4.07 x10^6/uL (3.50-5.40) Hemoglobin 11.5 g/dL (12.0-15.5) Hematocrit 35.2 % (36.0-47.0) Mean Corpuscular Volume 87 fL (79-100) Mean Corpuscular Hemoglobin 28 pg (25-35) Mean Corpuscular Hemoglobin Concent 33 g/dL (31-37) Red Cell Distribution Width 15.8 % (11.5-14.5) Platelet Count 238 x10^3/uL (140-400) Neutrophils (%) (Auto) 72 % (31-73) Lymphocytes (%) (Auto) 17 % (24-48) Monocytes (%) (Auto) 9 % (0-9) Eosinophils (%) (Auto) 1 % (0-3) Basophils (%) (Auto) 1 % (0-3) Neutrophils # (Auto) 7.3 x10^3/uL (1.8-7.7) Lymphocytes # (Auto) 1.7 x10^3/uL (1.0-4.8) Monocytes # (Auto) 0.9 x10^3/uL (0.0-1.1) Eosinophils # (Auto) 0.1 x10^3/uL (0.0-0.7) Basophils # (Auto) 0.1 x10^3/uL (0.0-0.2) Assessment/Plan Assessment/Plan Urinary tract infection likely pyelonephritis history hypertension -Was here for concern for urinary infection yesterday. Was provided oral antibiotics but only worsened -Returned today emergency room concern for pyelonephritis plan for admission IV antibiotics -We will start patient on Zosyn and see how she does -Home hypertension medications resumed -There is an elevated procalcitonin but no apparent signs of pneumonia clean chest x-ray. Zosyn being used for urinary infection would cover most typical bugs for pneumonia anyways -DVT prophylaxis -Cardiac diet 19 minutes advance care planning she is a full code Justifications for Admission Other Justification PAWAN DELGADILLO MD Jan 11, 2022 00:33
[2022-01-11 03:00] VITALS: BP 103/60
[2022-01-11] MEDS: VANCOMYCIN 1.5 GM in IV NORMAL SALINE 500ML BAG 500 ML IV SCH ×2 (03:12→12:25)
[2022-01-11] MEDS: PIPERACILLIN/TAZOBACTAM 3.375 GM in IV NORMAL SALINE 50ML 50 ML IV SCH ×4 (05:39→23:57)
[2022-01-11] MEDS: HEPARIN for SUB-Q USE 5,000 UNIT/ML VIAL. SQ SCH ×3 (05:40→21:16)
[2022-01-11 07:03] VITALS: BP 131/66
[2022-01-11] MEDS ORDERED: KETOROLAC 30 MG/ML VIAL. IV PRN (08:00)
[2022-01-11] MEDS: MULTIVITAMIN with MINERAL TABLET. PO SCH (08:28)
[2022-01-11] MEDS: hydroCHLOROthiazide 25 MG TABLET PO SCH (08:29)
[2022-01-11] MEDS: SENNOSIDES/DOCUSATE 8.6/50MG TABLET. PO SCH ×2 (08:29→21:12)
[2022-01-11 11:00] VITALS: BP 115/60
--- NOTE | 2022-01-11 12:45 | PDOC ---
[employer] PROGRESS NOTE Date of Service DOS: DATE: 01/11/22 TIME: 12:43 Chief Complaint Chief Complaint Pyelonephritis Headache History of the following;Hypertension, Hyperthyroid Additional Past Surgical Histo: BURNING OR UTERUS FOR HPV Smoking Status: Never Smoker Alcohol Use: None Drug Use: Benzodiazepine History of Present Illness History of Present Illness 01/11/2022 Patient seen and examined Discussed with RN Chart reviewed Patient's is present and seems to be good support for her Vitals/I&O Vitals/I&O: Vital Signs Date Time Temp Pulse Resp B/P (MAP) Pulse Ox O2 Delivery O2 Flow Rate FiO2 01/11/22 11:00 98.7 77 20 115/60 (78) 94 Room Air 98.7 I & O 01/10/22 01/10/22 01/11/22 15:00 23:00 07:00 Intake Total 0 ml Balance 0 ml Physical Exam General: Alert, Other (Complains of headache) Heart: Regular rate Lungs: Clear Abdomen: Normal bowel sounds Extremities: No clubbing Skin: No rashes Labs Labs: Laboratory Tests Test 01/10/22 16:55 01/10/22 17:05 01/10/22 20:28 01/11/22 08:50 Urine Collection Type Unknown Urine Color (Auto) Light yellow Urine Turbidity Hazy Urine pH (Auto) 7.5 (<5.0-8.0) Urine Specific Rudd 1.015 (1.000-1.030) Urine Protein (Auto) Negative mg/dL (Negative) Urine Glucose (Auto)(UA) Negative mg/dL (Negative) Urine Ketones (Auto) Negative mg/dL (Negative) Urine Blood (Auto) Large (Negative) Urine Nitrite Negative (Negative) Urine Bilirubin (Auto) Negative (Negative) Urine Urobilinogen (Auto) Normal mg/dL (Normal) Urine Leukocyte Esterase (Auto) Moderate (Negative) Urine RBC 20-40 /HPF (0-2) Urine WBC 11-20 /HPF (0-4) Urine Squamous Epithelial Cells Mod /LPF Urine Bacteria Few /HPF (0-FEW) Urine Mucus Slight /LPF Sodium Level 139 mmol/L (136-145) Potassium Level 3.6 mmol/L (3.5-5.1) Chloride Level 99 mmol/L (98-107) Carbon Dioxide Level 31 mmol/L (21-32) Anion Gap 9 (6-14) Blood Urea Nitrogen 14 mg/dL (7-20) Creatinine 0.9 mg/dL (0.6-1.0) Estimated GFR (Cockcroft-Gault) 67.4 BUN/Creatinine Ratio 16 (6-20) Glucose Level 109 mg/dL (70-99) Lactic Acid Level 1.2 mmol/L (0.4-2.0) Calcium Level 9.0 mg/dL (8.5-10.1) Total Bilirubin 0.5 mg/dL (0.2-1.0) Aspartate Amino Transf (AST/SGOT) 21 U/L (15-37) Alanine Aminotransferase (ALT/SGPT) 26 U/L (14-59) Alkaline Phosphatase 81 U/L (46-116) Total Protein 7.7 g/dL (6.4-8.2) Albumin 3.3 g/dL (3.4-5.0) Albumin/Globulin Ratio 0.8 (1.0-1.7) Procalcitonin 8.21 ng/mL (0.00-0.10) White Blood Count 10.1 x10^3/uL (4.0-11.0) Red Blood Count 4.07 x10^6/uL (3.50-5.40) Hemoglobin 11.5 g/dL (12.0-15.5) Hematocrit 35.2 % (36.0-47.0) Mean Corpuscular Volume 87 fL (79-100) Mean Corpuscular Hemoglobin 28 pg (25-35) Mean Corpuscular Hemoglobin Concent 33 g/dL (31-37) Red Cell Distribution Width 15.8 % (11.5-14.5) Platelet Count 238 x10^3/uL (140-400) Neutrophils (%) (Auto) 72 % (31-73) Lymphocytes (%) (Auto) 17 % (24-48) Monocytes (%) (Auto) 9 % (0-9) Eosinophils (%) (Auto) 1 % (0-3) Basophils (%) (Auto) 1 % (0-3) Neutrophils # (Auto) 7.3 x10^3/uL (1.8-7.7) Lymphocytes # (Auto) 1.7 x10^3/uL (1.0-4.8) Monocytes # (Auto) 0.9 x10^3/uL (0.0-1.1) Eosinophils # (Auto) 0.1 x10^3/uL (0.0-0.7) Basophils # (Auto) 0.1 x10^3/uL (0.0-0.2) Creatine Kinase 115 U/L (26-192) Assessment and Plan Assessmemt and Plan Problems Medical Problems: (1) Acute pyelonephritis Status: Acute (2) Pyelonephritis Status: Acute (3) Sepsis Status: Acute Pyelonephritis Headache History of the following;Hypertension, Hyperthyroid Additional Past Surgical Histo: BURNING OR UTERUS FOR HPV Smoking Status: Never Smoker Alcohol Use: None Drug Use: Benzodiazepine Plan IV fluids IV antibiotics As needed Toradol for her headache Home meds DVT prophylaxis Full code Hope to discharge in the morning if she is feeling better Comment Review of Relevant I have reviewed the following items roberto (where applicable) has been applied. Medications: Current Medications Medications (Trade) Dose Ordered Sig/Yanick Route PRN Reason Start Time Stop Time Status Last Admin Dose Admin Sodium Chloride 1,000 ml @ 1,440 mls/hr Q42M IV 01/10/22 16:45 01/10/22 17:45 DC 01/10/22 18:53 Piperacillin Sod/ Tazobactam Sod 4.5 gm/Dextrose 100 ml @ 200 mls/hr 1X ONCE IV 01/10/22 17:00 01/10/22 17:29 DC 01/10/22 17:14 Vancomycin HCl (Vanco Per Pharmacy) 1 each 1X ONCE MC 01/10/22 16:45 01/10/22 20:30 DC 01/10/22 18:52 Ondansetron HCl (Zofran) 4 mg 1X ONCE IVP 01/10/22 16:45 01/10/22 16:46 DC 01/10/22 17:11 Acetaminophen (Tylenol) 1,000 mg 1X ONCE PO 01/10/22 16:45 01/10/22 16:46 DC 01/10/22 17:10 Vancomycin HCl 2 gm/Sodium Chloride 500 ml @ 250 mls/hr 1X ONCE IV 01/10/22 17:30 01/10/22 19:29 DC 01/10/22 18:52 Oxycodone/ Acetaminophen (Percocet 5/325) 1 tab PRN Q4HRS PRN PO MILD PAIN, 1ST CHOICE 01/10/22 19:15 01/11/22 04:32 Acetaminophen (Tylenol) 650 mg PRN Q6HRS PRN PO Headaches, Temp > 101.5F 01/10/22 19:15 01/10/22 23:02 Senna/Docusate Sodium (Senna Plus) 1 tab BID PO 01/10/22 21:00 01/11/22 08:29 Heparin Sodium (Porcine) (Heparin Sodium) 5,000 unit Q8HRS SQ 01/10/22 22:00 01/11/22 05:40 Vancomycin HCl 1.5 gm/Sodium Chloride 500 ml @ 250 mls/hr Q8H IV 01/11/22 03:00 01/11/22 12:25 Piperacillin Sod/ Tazobactam Sod 3.375 gm/Sodium Chloride 50 ml @ 100 mls/hr Q6HRS IV 01/11/22 00:00 01/11/22 05:39 Amlodipine Besylate (Norvasc) 5 mg DAILY PO 01/11/22 09:00 01/11/22 08:29 Hydrochlorothiazide (Hydrodiuril) 25 mg DAILY PO 01/11/22 09:00 01/11/22 08:29 Multivitamins (Thera M Plus) 1 tab DAILY PO 01/11/22 09:00 01/11/22 08:28 Ketorolac Tromethamine (Toradol 30mg Vial) 30 mg PRN Q6HRS PRN IV PAIN 01/11/22 08:00 01/16/22 07:59 01/11/22 08:31 Justifications for Admission Other Justification HAYLEY OLIVIA III DO Jan 11, 2022 12:45
[2022-01-11 15:00] VITALS: BP 128/51
[2022-01-11 19:00] VITALS: BP 121/48
--- NOTE | 2022-01-11 20:00 | NUR ---
When I entered the patient's room, patient was crying and stating that she needed to be updated on POC because she didn't know if she was getting better. Patient stated that she wanted to go over her labs to figure out her progress. Patient also stated she wanted to get a copy of her medical records to take to her doctor's office and for a note to be written to excuse her from work. 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 Patient educated on process to obtain medical records. Patient also updated on most recent labs and how they relate to her progress. Patient content with updates and is no longer tearful. Addendum: 01/12/22 at 1455 by CHRYSTAL YANCEY RN RN Pharmacy called to discuss Vanc trough and asked for RN to speak with physician to find out if they want to continue the Vanc or D/C it. Dr. Mccarthy notified of request, order to D/C Vanc but continue the Zosyn.
[2022-01-11 20:13] LABS: VANC TR 11.9 mcg/mL (10.0-20.0)
[2022-01-11] MEDS ORDERED: VANCOMYCIN PER PHARMACY MC PRN (21:00)
[2022-01-11] MEDS ORDERED: VANCOMYCIN 2 GM in IV NORMAL SALINE 500ML BAG 500 ML IV SCH (21:00)
--- NOTE | 2022-01-11 21:12 | NUR ---
Pharmacy Vancomycin Dosing Note S:Consulted to monitor and dose vancomycin started 01/10/22. O:ADELAIDA REDDY is a 46 year old F with Sepsis Pyelonephritis . Height: 5 feet, 1 inches Weight: 147.118952 kg [place] Body Weight: 185.80 Adjusted Body Weight: 170.68 Dosing Weight: Other Antibiotics: Zosyn 3.375gm IVPB q6hrs LABS: Last BUN: 14 Last Creatinine: 0.9 Creatinine Clearance: 108 mL/min Last WBC: Last Procalcitonin: Tmax (past 24 hours): 98.7 Microbiology: I/O: Drug Levels: Last Trough level: 11.9 on 01/11/22 at 1900 Last dose given 01/10/22 at 1852 Vancomycin Dosing: Loading Dose: 2000 mg x1 Dosing Weight: Target Trough: 15-20 A: Based on: LEVEL P: 1. Change Vancomycin 2000mg IV q8h 2. Follow up Trough level on 01/12/22 at 2030 3. Pharmacy will continue to monitor, follow and adjust therapy as needed. JAD DELEON RPH, 01/11/22 [id number]
[2022-01-11 23:00] VITALS: BP 129/70
[2022-01-12] MEDS: ACETAMINOPHEN 325 MG TABLET. PO PRN (00:19)
[2022-01-12 03:00] VITALS: BP 122/58
[2022-01-12 05:23] LABS: CALCIUM 8.5 mg/dL (8.5-10.1); CREATININE 0.8 mg/dL (0.6-1.0); GFR 77.2; POTASSIUM 3.5 mmol/L (3.5-5.1)
[2022-01-12] MEDS: HEPARIN for SUB-Q USE 5,000 UNIT/ML VIAL. SQ SCH ×2 (06:00→11:00)
[2022-01-12] MEDS: PIPERACILLIN/TAZOBACTAM 3.375 GM in IV NORMAL SALINE 50ML 50 ML IV SCH ×2 (06:00→11:00)
[2022-01-12 07:00] VITALS: BP 114/49
[2022-01-12] MEDS: hydroCHLOROthiazide 25 MG TABLET PO SCH (08:07)
[2022-01-12] MEDS: SENNOSIDES/DOCUSATE 8.6/50MG TABLET. PO SCH (08:07)
[2022-01-12] MEDS: MULTIVITAMIN with MINERAL TABLET. PO SCH (08:07)
[2022-01-12 11:00] VITALS: BP 149/77
[2022-01-12] MEDS ORDERED: AMOX1TAB10 PO (11:20)
--- NOTE | 2022-01-12 11:46 | NUR ---
Discharge Note: TENISHA REDDY PENSACOLA Discharge instructions and discharge home medications reviewed with Patient and a copy given. All questions have been answered and understanding verbalized. The following instructions and handouts were given: d/c instructions Discontinued lines and drains: Peripheral IV intact. Patient discharged to Home or Self Care with Family Member via Wheelchair
--- NOTE | 2022-01-12 16:47 | DS ---
DATE OF DISCHARGE: 01/12/2022 ADMISSION DIAGNOSIS: Pyelonephritis. DISCHARGE DIAGNOSIS: Resolving pyelonephritis. HOSPITAL COURSE: The patient is a pleasant 46-year-old female who presented with pyelonephritis. We gave her IV Zosyn, IV fluids, and p.r.n. pain meds as she had an associated headache. Today, I saw and examined her. She is smiling, wants to go home. We plan to discharge. DISPOSITION: Home. ACTIVITY: As tolerated. DIET: Low sodium. DISCHARGE MEDICATIONS: Augmentin 500 mg p.o. b.i.d., amlodipine 5 a day, hydrochlorothiazide 25 a day, and multiple vitamins. TOTAL TIME: 32 minutes. [facility] [place] DR: Duane TID: [id number]
== END 2022-01-12 13:13 | disposition home or self-care (01) | DRG 690 ==
LOC: ER 15:32 → ED HOLD 17:35 → 2 NORTH 21:26
PROVIDERS: ADMIT Student in an Organized Health Care Education/Training Program; ATTEND Student in an Organized Health Care Education/Training Program
DX: N10 Acute pyelonephritis (principal); I10 Essential (primary) hypertension; Z82.49 Family history of ischemic heart disease and other diseases of the circulatory system
CPT/HCPCS: 36415; 71045; 80048; 80053; 80202; 81001; 82550; 83605; 84145; 85025; 87077; 87086; 87186; 96365; 96375; J1644; J1885; J2405; J2543; J3370; J7030; J7040; J7060; 99285-25; G0378